=== PATIENT | female | born 1955 | race Caucasian/White ===

== ENCOUNTER 2022-08-27 09:27 | Outpatient (REF) | payer OTHER, SELFPAY ==
[2022-08-27 12:55] LABS: C Reactive Protein 2.65 mg/dL (< or = 0.50); Cortisol Random 12.9 ug/dL; Lipase 39 U/L (8-78); Magnesium 2.1 mg/dL (1.6-2.6); Phosphorus 3.4 mg/dL (2.7-4.5)
[2022-08-27 13:03] LABS: Erythrocyte Sedimentation Rate 27 MM/HR (0-20)
[2022-08-27 13:10] LABS: Ferritin 122 ng/mL (10-250); Folate 3.1 ng/mL (> or = 4.0); Vitamin B12 444 pg/mL (200-900); Vitamin D 25-OH Total 76.9 ng/mL (>30)
[2022-08-29 11:04] LABS: Calcium, Ionized 4.9 mg/dL (4.7-5.5)
[2022-08-29 12:50] LABS: Immunoglobulin G Subclass 1 704 mg/dL (382-929); Immunoglobulin G Subclass 2 197 mg/dL (241-700); Immunoglobulin G Subclass 3 30 mg/dL (22-178); Immunoglobulin G Subclass 4 19.2 mg/dL (4-86); Immunoglobulin G Total 958 mg/dL (600-1540)
[2022-08-29 13:04] LABS: IgA 145 mg/dL (70-320); IgG 1020 mg/dL (600-1540); IgM 41 mg/dL (50-300)
[2022-08-29 21:34] LABS: JO 1 Antibody <1.0 NEG AI (<1.0 NEG)
[2022-08-29 23:13] LABS: Prot Elec - Albumin 4.3 g/dL (3.8-4.8); Prot Elec - Alpha1 0.4 g/dL (0.2-0.3); Prot Elec - Beta 1 0.5 g/dL (0.4-0.6); Prot Elec - Beta 2 0.3 g/dL (0.2-0.5); Prot Elec - Gamma 0.9 g/dL (0.8-1.7); Prot Elec - Total Protein 7.5 g/dL (6.1-8.1)
[2022-08-30 11:38] LABS: PEU-Protein Creat Ratio Rand NOTE (0.024-0.184); PEU-Rand. Prot/Creat Ratio NOTE mg/g creat (24-184); PEU-Random Ur. Gamma Globulin 0 %; PEU-Random Urine A1 Globulin 0 %; PEU-Random Urine A2 Globulin 0 %; PEU-Random Urine Albumin 0 %; PEU-Random Urine Beta Globulin 0 %; PEU-Random Urine Creatinine 35 mg/dL (20-275); PEU-Random Urine Protein <4 mg/dL (5-24)
[2022-08-30 19:33] LABS: Immunoglobulin E 88 kU/L (<OR=114)
[2022-08-31 17:19] LABS: Zinc 68 mcg/dL (60-130)
[2022-08-31 17:42] LABS: Histamine Plasma <1.5 ng/mL (< OR = 1.8)
[2022-09-01 19:34] LABS: Vitamin C 0.8 mg/dL (0.3-2.7)
[2022-09-01 20:44] LABS: Calcitonin <2 pg/mL (<=5)
[2022-09-02 11:08] LABS: Vitamin B1 11 nmol/L (8-30)
[2022-09-02 14:17] LABS: Vitamin B6 9.7 ng/mL (2.1-21.7)
[2022-09-03 00:24] LABS: Gastrin 26 pg/mL (<=100)
[2022-09-03 00:58] LABS: Vitamin A 49 mcg/dL (38-98)
[2022-09-03 12:44] LABS: Gliadin Deamidated IgA Ab <1.0 U/mL; Gliadin Deamidated IgG Ab <1.0 U/mL; Transglutaminase Ab IgG <1.0 U/mL; Transglutaminase IgA <1.0 U/mL
[2022-09-03 15:14] LABS: Anti Nuclear Antibody Screen POSITIVE (NEGATIVE)
[2022-09-03 21:24] LABS: Nicotinamide <20 ng/mL; Vit B3 - Nicotinic Acid <20 ng/mL
[2022-09-04 00:44] LABS: Vitamin K1 267 pg/mL (130-1500)
[2022-09-04 04:33] LABS: C1 Esterase Inhibitor 95 % (>=68)
[2022-09-04 11:24] LABS: Vitamin B5 (Pantothenic Acid) <40 ng/mL (<275)
[2022-09-04 14:43] LABS: Angiotensin Converting Enzyme 14 U/L (9-67)
[2022-09-04 20:33] LABS: Alpha-Tocopherol 17.3 mg/L (5.7-19.9); Beta-Gamma Tocopherol <1.0 mg/L (<=4.3)
[2022-09-05 07:54] LABS: Aldolase 5.6 U/L (<=8.1)
[2022-09-06 23:39] LABS: Porphyrins, Total Plasma 0.9 mcg/L (1.0-5.6)
[2022-09-19 13:05] LABS: Metanephrine, Free <25; Normetanephrines, Free 248
[2022-09-19 13:06] LABS: Total Metanephrine, Free 248
== END 2022-08-27 09:28 | disposition home or self-care (01) ==
LOC: HO.LAB 09:27
PROVIDERS: PCP Nurse Practitioner Adult Health; Visit Provider Internal Medicine Gastroenterology
DX: D64.9 Anemia, unspecified (principal); E46 Unspecified protein-calorie malnutrition; G25.82 Stiff-man syndrome; M79.10 Myalgia, unspecified site; R19.8 Other specified symptoms and signs involving the digestive system and abdomen; R79.82 Elevated C-reactive protein (CRP); G89.29 Other chronic pain; R10.33 Periumbilical pain; E83.52 Hypercalcemia; R19.7 Diarrhea, unspecified
CPT/HCPCS: 82085; 82164; 82180; 82306; 82308; 82330; 82533; 82542; 82550; 82570; 82607; 82728; 82746; 82784; 82785; 82941; 83088; 83520; 83690; 83735; 83835; 84100; 84156; 84165; 84166; 84207; 84425; 84446; 84590; 84591; 84597; 84630; 85652; 86038; 86039; 86140; 86160; 86161; 86235; 86258; 86341; 86364

== ENCOUNTER 2022-09-19 10:44 | Outpatient (REF) | payer OTHER, SELFPAY ==
[2022-09-25 12:48] LABS: Creatinine 24Hr Urine 1034 mg/24 h (603 - 1783); N-Methylhistamine, 24Hr Urine 112 mcg/g Cr (30-200); Total Volume 1325 mL
[2022-09-26 19:54] LABS: Fecal Fat Qualitative NORMAL (NORMAL)
[2022-09-26 22:18] LABS: Coproporphyrin I, 24Hr 13.9 mcg/24 h (7.1-48.7); Coproporphyrin III, 24Hr 58.2 mcg/24 h (11.0-148.5); Heptacarboxylporphyrin, 24U 0.9 mcg/24 h (< OR = 3.3); Hexacarboxylporphryin, 24U 1.5 mcg/24 h (< OR = 10.0); Total Volume, Porphyrins 24Hr 1325 mL; Uroporphyrin I, 24 Hr 14.5 mcg/24 h (4.1-22.4)
[2022-09-28 21:58] LABS: Lactoferrin, Fecal, Quant. <6.25 mcg/mL (<7.25)
[2022-10-01 23:08] LABS: Pancreatic Elastase-1 >500 mcg/g
== END 2022-09-19 10:45 | disposition home or self-care (01) ==
LOC: HO.LNP 10:44
PROVIDERS: Visit Provider Internal Medicine Gastroenterology
DX: D64.9 Anemia, unspecified (principal); E46 Unspecified protein-calorie malnutrition; G25.82 Stiff-man syndrome; M79.10 Myalgia, unspecified site; R19.8 Other specified symptoms and signs involving the digestive system and abdomen; K51.50 Left sided colitis without complications
CPT/HCPCS: 81050; 82542; 82656; 82705; 83631; 84120

== ENCOUNTER 2022-09-26 10:33 | Day surgery (SDC) | payer OTHER, SELFPAY ==
[2022-09-24 12:26] VITALS: BMI 27.6
--- NOTE | 2022-09-25 12:19 | P.CONAN_ITS ---
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) Myalgia (Acute) Abnormal bowel habits (Acute) Anemia (Acute) Malnutrition (Acute) Past Medical History Medical History Anemia Asthma Fibromyalgia Mast cell disease Migraine Family History Family History (Updated 08/27/22 @ 09:32 by DORA Lamb) Mother HTN (hypertension) Father HTN (hypertension) Surgical History Surgical History H/O colonoscopy History of esophagogastroduodenoscopy (EGD) Hx of appendectomy Hx of section Social History Social History Patient Tobacco Use Status: Never used Tobacco Use of substances other than those prescribed or required for medical reasons: No Substance Use Type Other:: CBD with THC- last dose 6 weeks ago Are you DNR?: No Advance Directives: No Advance Directives Information Provided: Yes Patient : No Meds Allergies Allergy/AdvReac Type Severity Reaction Status Date / Time gluten Allergy Mild Unknown Verified 08/27/22 09:31 Seasonal Allergies Allergy Mild Unknown Verified 08/27/22 09:31 Home Medications Medication Instructions Recorded Confirmed Last Taken Type albuterol sulfate 90 mcg/actuation 2 puff inhalation QID PRN wheezing 08/27/22 09/24/22 Unknown History aerosol inhaler cromolyn 100 mg/5 mL oral mg PO 08/27/22 Unknown History concentrate cyclosporine 0.05 % eye drops in a 1 drp ophthalmic (eye) BID 08/27/22 09/24/22 Unknown History dropperette (Restasis) epinephrine 0.15 mg/0.3 mL 0.15 mg IM ONCE PRN anaphylaxis 08/27/22 09/24/22 Unknown History injection,auto-injector gabapentin 100 mg capsule 100 mg PO TID 08/27/22 09/24/22 Unknown History thyroid (pork) 30 mg tablet 30 mg PO BID 08/27/22 09/26/22 09/26/22 05:00 History ([place] Thyroid) 90 mg Exam Exam Date and Time: September 25, 2022 1219 Height,Weight and Vital Signs: Height 5 ft 4 in Weight 73.028 kg Assessment and Plan Assessment Anesthesia Assessment: Chart Reviewed Documented by User: Tina Edmonds MD 09/26/22 12:00 [facility] Past Medical History Medical History Anemia Asthma Fibromyalgia Mast cell disease Migraine Family History Family History (Updated 08/27/22 @ 09:32 by DORA Lamb) Mother HTN (hypertension) Father HTN (hypertension) Family history of problems with anesthesia: No Surgical History Surgical History H/O colonoscopy History of esophagogastroduodenoscopy (EGD) Hx of appendectomy Hx of section History of Problems with Anesthesia: No Social History Social History Patient Tobacco Use Status: Never used Tobacco Use of substances other than those prescribed or required for medical reasons: No Substance Use Type Other:: CBD with THC- last dose 6 weeks ago Are you DNR?: No Advance Directives: No Advance Directives Information Provided: Yes Patient : No Meds Allergies Allergy/AdvReac Type Severity Reaction Status Date / Time gluten Allergy Mild Unknown Verified 08/27/22 09:31 Seasonal Allergies Allergy Mild Unknown Verified 08/27/22 09:31 Home Medications Medication Instructions Recorded Confirmed Last Taken Type albuterol sulfate 90 mcg/actuation 2 puff inhalation QID PRN wheezing 08/27/22 09/24/22 Unknown History aerosol inhaler cromolyn 100 mg/5 mL oral mg PO 08/27/22 Unknown History concentrate cyclosporine 0.05 % eye drops in a 1 drp ophthalmic (eye) BID 08/27/22 09/24/22 Unknown History dropperette (Restasis) epinephrine 0.15 mg/0.3 mL 0.15 mg IM ONCE PRN anaphylaxis 08/27/22 09/24/22 Un known History injection,auto-injector gabapentin 100 mg capsule 100 mg PO TID 08/27/22 09/24/22 Unknown History thyroid (pork) 30 mg tablet 30 mg PO BID 08/27/22 09/26/22 09/26/22 05:00 Hist ory ([place] Thyroid) 90 mg Exam Airway Mallampati Class: II TM Dist: >3cm Neck ROM: Full Heart: rrr Lungs: cta Assessment and Plan Assessment Anesthesia Assessment: Anesthesia Plan Discussed Final Anesthetic Review Family History of Problems with Anesthesia: No History of Problems with Anesthesia: No NPO: Yes ASA Class: II Final Preanesthetic Review: No Changes in Pt Med Stat, Meds/Allgs Chart Reviewed and Consent Obtained/Reviewed Patient Risk: Intermediate Procedure Risk: Intermediate Anesthetic Plan Anesthetic Plan: MAC: Disposition: Standard PACU
[2022-09-26 11:06] VITALS: BMI 27.1
--- NOTE | 2022-09-26 11:11 | MHC.SHP ---
Pre-Procedural Eval Section A Date of Service: 09/26/22 Section B Chief Complaint: anemia,signs involving the digestive system Relevant Family History (Specify if Yes): No Relevant Social History: None Present Medications: see Short Stay Collaborative assessment Medical History: Significant History (migraines, asthma, fibromyalgia) History of Previous Operations: Relevant previous surgery/procedure and date(s) (appendectomy, c section x 2, bone marrow donation) Allergies: Allergies Allergy/AdvReac Type Severity Reaction Status Date / Time gluten Allergy Mild Unknown Verified 08/27/22 09:31 Seasonal Allergies Allergy Mild Unknown Verified 08/27/22 09:31 Review of Systems Sugical H&P ROS: Negative: Constitution, Cardiovascular, Respiratory, Neurological, Psychiatric, Hem-Onc, Allergic/Immunologic, Gastrointestinal, Genitourinary, Musculoskeletal, Integumentary, Endocrine and Eyes/Ears/Nose/Throat Exam Surgical H&P Exam: Normal: HEENT, Normal: Heart, Normal: Lungs, Normal: Extremities, Normal: Abdomen, Normal: Skin and Normal: Neurological Plan Diagnosis/Plan: Unchanged I have reviewed the history and physical and performed a pertinent physical examination on my patient. No changes have occurred unless specified. Time Spent With Patient Time: Total time managing care of this patient today ____ minutes.
[2022-09-26 11:15] VITALS: BP 156/63; PULSE 88; RESP 16; TEMP 37.2; O2SAT 97
[2022-09-26] MEDS: Lactated Ringers 1,000 ML 100 ML IVCONT (11:19)
--- NOTE | 2022-09-26 11:56 | W.PM.OPN ---
Operative Note Operative Note Date of Service: 09/26/22 Narrative: Operative Information Procedure Description: EGD, Colonoscopy Indication: anemia, abn bowel habit Anesthesia: MAC FLEXIBLE TRANSORAL UPPER GASTROINTESTINAL ENDOSCOPY AND COLONOSCOPY PROCEDURE NOTE UPPER ENDOSCOPY Consent: Indications for the procedure and potential complications of bleeding, perforation, reaction to medications and missed diagnosis were discussed with the patient and informed consent was obtained. Instrument: Olympus GIF H 190 J mid size upper endoscope Monitoring: Vital signs and clinical assessment, continuous EKG monitoring, Pulse oximetry, Carbon Dioxide monitoring and blood pressure monitoring were done throughout the procedure. Procedure: The patient was placed in the left lateral decubitis position and pre-procedure medications were administered and a bite block was placed. The endoscope was inserted into the mouth and advanced under direct vision to the third part of duodenum. A careful inspection was made as the upper endoscope was withdrawn including a retroflexed examination of the proximal stomach; Findings and interventions are described below. Findings: Larynx:normal Esophagus: GE junction at 37 cm, diaphragm hiatus at 37 cm, bogginess and erythema at GEJ, bx taken, also from distal and proximal esophagus Stomach: Granular and erythematous mucosa. Biopsies were obtained. Grade 3 flap valve on retroflexed examination of the cardia, LEs seemed v lax Duodenum: Patchy bulbar duodenitis, bx taken, also samples taken for T whipplei PCR Intervention: Biopsies as noted above COLONOSCOPY Instrument: Olympus variable stiffness pediatric scope 190L Colonoscopy Monitoring: Vital signs and clinical assessment, continuous EKG monitoring, Pulse oximetry, Carbon Dioxide monitoring and blood pressure monitoring were done throughout the procedure. Colon withdrawal time was 14 minutes. Procedure: The patient was placed in the left lateral decubitis position and pre-procedure medications were administered. After a digital rectal examination of the ano-rectum, the video colonoscope was inserted into the rectum and advanced through the colon to the cecum/TI. The colonoscope was slowly withdrawn in a retrograde panoramic fashion and the colon mucosa was carefully examined including a retroflexed view of the rectum. Findings and interventions are described below. Procedure Difficulty: easy Findings: Terminal Ileum-normal, bx taken Cecum: 6-8 mm sessile polyp removed with cold snare Ascending Colon: normal, bx taken Transverse Colon -normal, bx taken Descending Colon:normal, bx taken Sigmoid Colon: granular appearing mucosa, bx taken Rectum: Retroflexion with small internal hemorrhoids, grade I, rectal bx taken as well Anorectum - normal Colon preparation: [place] Bowel Preparation Scale Right colon; 2 Transverse colon: 3 Left colon; 3 (0 = Unprepared colon segment with mucosa not seen due to solid stool that cannot be cleared. 1 = Portion of mucosa of the colon segment seen, but other areas of the colon segment not well seen due to staining, residual stool and/or opaque liquid. 2 = Minor amount of residual staining, small fragments of stool and/or opaque liquid, but mucosa of colon segment seen well. 3 = Entire mucosa of colon segment seen well with no residual staining, small fragments of stool or opaque liquid) Impression and Post Procedure Diagnosis: Endoscopy Findings: duodenitis esophagitis lax LES gastritis Colonoscopy Findings: polyp internal hemorrhoids Plan: Await Pathology results Repeat Colonoscopy in 5-6 years or earlier if clinically indicated High fiber diet leaflet avoid straining at stool, epsom salts and sitz bath, anusol supps or cream if H pylori pos then treat Above findings were reviewed with the patient and relevant handouts were provided if indicated.
[2022-09-26 12:47] VITALS: BP 143/50; PULSE 92; RESP 16; TEMP 36.9; O2SAT 93
[2022-09-26 13:03] VITALS: BP 140/72; PULSE 79; RESP 14; O2SAT 96
[2022-09-26 13:18] VITALS: BP 148/64; PULSE 84; RESP 16; TEMP 37; O2SAT 97
[2022-10-07 08:40] LABS: Other Ref Test - Misc SEE COMMENTS
== END 2022-09-26 14:05 | disposition home or self-care (01) ==
PROVIDERS: PCP Nurse Practitioner Adult Health; Visit Provider Internal Medicine Gastroenterology
PROC: (CPT 45385; principal; 2022-09-26 12:20)
DX: D64.9 Anemia, unspecified (principal); R19.4 Change in bowel habit; D12.0 Benign neoplasm of cecum; K64.0 First degree hemorrhoids; D52.9 Folate deficiency anemia, unspecified; K29.80 Duodenitis without bleeding; K22.0 Achalasia of cardia; K29.50 Unspecified chronic gastritis without bleeding; K20.80 Other esophagitis without bleeding; K44.9 Diaphragmatic hernia without obstruction or gangrene; J45.909 Unspecified asthma, uncomplicated; M79.7 Fibromyalgia; D47.02 Systemic mastocytosis; K90.41 Non-celiac gluten sensitivity; G43.909 Migraine, unspecified, not intractable, without status migrainosus; G25.82 Stiff-man syndrome; Z79.899 Other long term (current) drug therapy
CPT/HCPCS: 45385; 45380; 43239; 87798; 88305; 88313; 88341; 88342; J2250

== ENCOUNTER 2022-12-04 14:07 | Outpatient (REF) | payer MEDICARE, OTHER, SELFPAY ==
[2022-12-04 15:41] LABS: Blood Urea Nitrogen 16 mg/dL (9-16); Estimated Glomerular Filt Rate > 60
== END 2022-12-04 14:08 | disposition home or self-care (01) ==
LOC: HO.LAB 14:07
PROVIDERS: PCP Nurse Practitioner Adult Health; Visit Provider Internal Medicine Gastroenterology
DX: D64.9 Anemia, unspecified (principal)
CPT/HCPCS: 36415; 82565; 84520

== ENCOUNTER 2022-12-05 08:18 | Outpatient (REF) | payer MEDICARE, OTHER, SELFPAY ==
--- NOTE | ~2022-12-05 | CT_ITS ---
EXAMINATION: CT ABDOMEN AND PELVIS WITHOUT CONTRAST CLINICAL INFORMATION: Periumbilical pain COMPARISON: None available. TECHNIQUE: Multidetector volumetric imaging was performed from the superior aspect of the liver through the pubic symphysis. Sagittal and coronal reformatted images were obtained on the technologist's workstation. This CT examination was performed using dose optimization techniques as appropriate, variously including the following: *Automated exposure control *Adjustment of mA and/or kV according to patient size (this includes techniques or standardized protocols for targeted exams where dose is matched to indication/reason for exam; i.e. extremities or head) *Use of iterative reconstruction technique DLP: 505 mGy-cm FINDINGS: Visualized lung bases demonstrate mild dependent atelectasis. The liver demonstrates normal size, contour and attenuation. The gallbladder is normal in appearance. The pancreas, spleen and adrenal glands are unremarkable. Small anterior splenule. Symmetrically sized kidneys. No renal calculi or hydronephrosis of either kidney. The stomach is mildly distended with fluid. Normal caliber loops of small and large bowel. Mild colonic stool burden. Surgical clips suggesting prior appendectomy. Normal caliber abdominal aorta demonstrating mild atherosclerotic disease. No retroperitoneal lymphadenopathy. The bladder is normal in appearance. Unremarkable CT appearance of the uterus. 2 cm left adnexal cyst. No gross free pelvic fluid. No inguinal lymphadenopathy. No acute osseous abnormality. CT/CT abdomen pelvis wo IV con IMPRESSION: No CT evidence for acute abnormality within the abdomen or pelvis. Fleischner guidelines were followed.
[2022-12-05] MEDS: Sorbitol/Mannit/Xanth Imaging 500 ML LIQUID 1500 ML PO (10:26)
== END 2022-12-05 08:19 | disposition home or self-care (01) ==
LOC: HO.CT 08:18
PROVIDERS: PCP Nurse Practitioner Adult Health; Visit Provider Internal Medicine Gastroenterology
DX: R10.33 Periumbilical pain (principal); R76.8 Other specified abnormal immunological findings in serum
CPT/HCPCS: 74176; 99202

== ENCOUNTER 2022-12-05 14:52 | Outpatient (AMB) | payer MEDICARE, OTHER, SELFPAY ==
[2022-12-05 14:57] VITALS: BP 112/74; PULSE 96; TEMP 36.3; O2SAT 97; BMI 28.5
--- NOTE | 2022-12-05 14:57 | A.OFFVIS_ITS ---
Intake Vital Signs 12/05/22 14:57 Height 5 ft 4 in Weight 166 lb 0.129 oz BMI 28.5 BP 112/74 Blood Pressure Location Rt brachial Position Sitting Pulse 96 Pulse Source Pulse Oximeter Temp 97.3 F Temp Source Skin Pulse Oximetry (%) 97 Intake Visit Reasons: Myalgia ? autoimmune Intake Note: New pt presents today for consult referred by GI Dr De La Rosa. C/o generalized pain Seen previous RHEUM [facility] Dr Char Barrios Was using medical marijuna in the past for FM management, has not used in 6mos Slot Shift Manager Required: No Accompanied by: Self / Same As Patient Allergies gluten Allergy (Mild, Verified 12/05/22 15:01) Unknown Seasonal Allergies Allergy (Mild, Verified 12/05/22 15:01) Unknown Medication List - Last Reconciled 12/05/22 by Deshawn Shah MD albuterol sulfate 90 mcg/actuation 2 puffs inhalation QID PRN celecoxib (Celebrex) 100 mg PO BID cromolyn mg PO cyclosporine 0.05% (Restasis) 1 drp ophthalmic (eye) BID epinephrine 0.15 mg IM ONCE PRN gabapentin 100 mg PO TID peg-electrolyte soln 420 gram 240 mL PO Q10M thyroid (pork) ([place] Thyroid) 60 mg PO DAILY HPI HPI Comments History of Present Illness Details This is a 67-year-old female with a past medical history of fibromyalgia who presents for evaluation of multiple issues. Patient has numerous complaints. She was diagnosed with fibromyalgia in her 30s. She has diffuse body pain, she gets muscle cramps especially her toes, her ankles. These cramps happen when in a certain position and she has to tried to get herself into a comfortable position as soon as she can. Took Lyrica in the past which was not helpful. She also gets a sensation of chest pain traveling from her abdomen into her chest at night. She also gets random tingling and numbness of her elbows. Back in 2020 patient was evaluated by a manager skilled at [facility] and was told that no signs of autoimmune rheumatic disease was found, she was also evaluated by a neurologist at [facility], had EMG and testing was negative. 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 She has been taking magnesium for 10 years. [facility] Medical History (Updated 12/05/22 @ 15:48 by Deshawn Shah MD) Anemia Asthma Fibromyalgia Mast cell disease Migraine Stiff-man syndrome Surgical History H/O colonoscopy History of esophagogastroduodenoscopy (EGD) Hx of appendectomy Hx of section Family History Mother HTN (hypertension) Father HTN (hypertension) Social History Household Members: Spouse Alcohol intake: current Alcohol intake frequency: holidays/special occasions only Alcohol type: wine Patient Tobacco Use Status: Never used Tobacco Current occupational status: retired Female Reproductive History Menstrual Total pregnancies: 3 Number of Living Children: 3 Review of Systems Const Reports fatigue Eyes Reports diplopia and Reports dry eyes ENT Reports hoarseness and Reports tinnitus Card Reports no additional complaints and Reports dyspnea Resp Reports cough, Reports dyspnea and Reports wheezing GI Reports diarrhea Musc Reports arthralgias and Reports tingling Neuro Reports restless legs, Reports tingling and Reports paresthesias Psych Reports abnormal sleep pattern and Reports anxiety Endo Reports fatigue Aller/Immun Reports wheezing Physical Exam Vital Signs: Last Vital Signs Temp 97.3 F 12/05/22 14:57 Pulse 96 12/05/22 14:57 BP 112/74 12/05/22 14:57 Pulse Ox 97 12/05/22 14:57 BMI result Body Mass Index 28.5 Const General: cooperative, healthy appearing and comfortable Nutritional Appearance: overweight Orientation/consciousness: patient oriented x3 Limitations: no limitations HEENT Head: Yes normocephalic and Yes atraumatic Mouth: moist mucous membranes Resp Effort & Inspection: normal respiratory effort and able to speak in complete sentences Auscultation: clear to auscultation bilaterally Cardio Rate: regular rate Rhythm: regular rhythm GI Inspection: No distended Palpation (GI): Soft to palpation and nontender Skin General skin exam: no rashes or lesions noted Neuro General: patient oriented x3 Extrem Other: Mild osteoarthritic changes of both hands with no active synovitis Normal nailfold capillaroscopy Proximal muscle strength 5/5 in all extremities Assessment & Plan Assessment & Plan (1) FLORINDA positive: Code(s): R76.8 - Other specified abnormal immunological findings in serum Plan: This is a 67-year-old female who presents for evaluation of a positive FLORINDA. Since her 30s patient has had numerous symptoms including muscle cramps, fatigue, joint pain, chest pain, headaches, irritable bowel habits. Skin rashes. Recent labs showed positive FLORINDA 1-80 DFS pattern. Workup in 2020 showed negative MAC and normal EMG of upper extremities. I do not see any signs of autoimmune rheumatic disease. Patient has been evaluated by rheumatologists and neurologists multiple times. Most recently she was evaluated by Rheumatology and Neurology at [facility]. The majority of patient's symptoms can be explained by fibromyalgia. Patient follows up regularly with a therapist. I suggested evaluation by a psychiatrist. Continue to follow-up with GI. Follow-up as needed Coding Level of Care Code New Pt Level 3 (59413) Diagnoses FLORINDA positive R76.8
== END 2022-12-05 15:42 | disposition home or self-care (01) ==
PROVIDERS: PCP Nurse Practitioner Adult Health; Visit Provider Student in an Organized Health Care Education/Training Program
DX: R76.8 Other specified abnormal immunological findings in serum (principal)
CPT/HCPCS: 99203

== ENCOUNTER 2023-01-07 09:51 | Outpatient (AMB) | payer MEDICARE, OTHER, SELFPAY ==
--- NOTE | 2023-01-07 09:54 | A.OFFVIS_ITS ---
Intake Vital Signs 01/07/23 09:56 Height 5 ft 4 in Weight 167 lb 8.821 oz BMI 28.8 BP 175/83 H Blood Pressure Location Lt brachial Position Sitting Pulse 87 Intake Visit Reasons: 4 mnth follow up Intake Note: Khadra presents in the office as a 4 month follow up. CC: Nothing seems to have changed - she still has all the pains in her stomach, bloating, gas pains, discomfort and nausea every morning. Allergies gluten Allergy (Mild, Verified 01/07/23 09:56) Unknown Seasonal Allergies Allergy (Mild, Verified 01/07/23 09:56) Unknown HPI 4 mnth follow up HPI Details 67 yr old f w/ hx of appendectomy, c-sec tion, migraines, asthma, here for f/u RECAP: All her life she has felt she has had issues migraines since teenage years diagnosed with SIBO and EBV she gets urticarial rash with exercise she cant drink alcohol makes her go in a rash and throat constricts she denies nausea, no vomiting she did have 2 months of lower abdominal pain going into the back but it went away by itself she can have bowel urgency, remains gluten free, usu loose bowels she had colonoscopy aged 52 with no bx, EGD also done, no bx done no blood in stool stool can flush, sometimes looks greasy she has noted satiety she has no heartburn she has bloating with a lot of gas she has been dx with fibromyalgia she has body pain, sometimes feels hard to walk she has extreme muscle cramping she saw a neurologist and had EMG and normal never had muscle biopsy never been checked for stiff man syndrome she is on a lot of meds incl cromolyn and pepcid, quercetin and supplements feels not helping she has treatment for sibo EGD/[place]; duodenitis, adnoema neg for amyloid and IgG4 INTERIM: she felt the celebrex has been good for day time sx, but not really helping her evening symptoms she traore shave nausea at night and morning when she lies down she has a strange sensation tingling, sensation of swelling, yucky feeling in chest, goes into the hands, and burning stays there toes can cramp a lot folate was low, not replenished she has used CCB, b vit complexes, biofeed, acupuncture, ugandan herbs EXAM: GENERAL: The patient is well developed and nontoxic. VITAL SIGNS:see workflow HEENT: Nonicteric sclerae, PERRLA, EOMI. Oropharynx clear. Moist mucous membranes. Conjunctivae appear well perfused. No thyroid mass. CHEST: Chest wall is nontender. HEART: Regular rate and rhythm without murmurs. LUNGS: Clear to auscultation bilaterally. ABDOMEN: Soft, positive bowel sounds, nontender, no organomegaly.no flank tenderness SKIN: No rash, no excessive bruising, petechiae, or purpura. NEUROLOGIC: Cranial nerves II-XII intact without motor/sensory deficit. psych: normal affect tender shoulder,s and neck A/P: 1/ Numerous assortment of sx incl musc c ramps, abn bowle habits, satiety, whole body pain, hard ot pinpoint a single dx at this time, ddx: referred from spine, due to folate def, taurine def Plan: 1/ taurine 1 g TID 2/ Folate replacement 5 mg daily 3/ cont with celebrex, occ monitoring of labs 4/ c spine, maybe mri depending on this [facility] Medical History (Updated 01/07/23 @ 10:28 by Manjinder De La Rosa MD) Fibromyalgia Asthma Migraine Mast cell disease Anemia Stiff-man syndrome Surgical History Hx of section Hx of appendectomy History of esophagogastroduodenoscopy (EGD) H/O colonoscopy Family History Mother HTN (hypertension) Father HTN (hypertension) Social History Household Members: Spouse Alcohol intake: current Alcohol intake frequency: holidays/special occasions only Alcohol type: wine Patient Tobacco Use Status: Never used Tobacco Current occupational status: retired Physical Exam Vital Signs: Last Vital Signs Pulse 87 01/07/23 09:56 BP 175/83 H 01/07/23 09:56 BMI result Body Mass Index 28.8 Assessment & Plan Assessment & Plan (1) Cervical spine arthritis: Code(s): M47.812 - Spondylosis without myelopathy or radiculopathy, cervical region (2) FLORINDA positive: Code(s): R76.8 - Other specified abnormal immunological findings in serum (3) Myalgia: Code(s): M79.10 - Myalgia, unspecified site Orders: Orders XR cervical spine 2V Today M47.812 - Spondylosis without myelopathy or radiculopathy, cervical region, M79.10 - Myalgia, unspecified site, R76.8 - Other specified abnormal immunological findings in serum Coding Level of Care Code Est Pt Level 4 (52127) Diagnoses Cervical spine arthritis M47.812 FLORINDA positive R76.8 Myalgia M79.10
[2023-01-07 09:56] VITALS: BP 175/83; PULSE 87; BMI 28.8
== END 2023-01-07 11:03 | disposition home or self-care (01) ==
PROVIDERS: PCP Nurse Practitioner Adult Health; Visit Provider Internal Medicine Gastroenterology
DX: M47.812 Spondylosis without myelopathy or radiculopathy, cervical region (principal); R76.8 Other specified abnormal immunological findings in serum; M79.10 Myalgia, unspecified site
CPT/HCPCS: 99214

== ENCOUNTER 2023-01-07 09:51 | Outpatient (REF) | payer MEDICARE, OTHER, SELFPAY ==
--- NOTE | ~2023-01-07 | XR_ITS ---
EXAMINATION: XR CERVICAL SPINE CLINICAL INFORMATION: Spondylosis without myelopathy, tingling in arms, neck stiffness, check for arthritis COMPARISON: None available. TECHNIQUE: 3 views of the cervical spine were obtained. FINDINGS: Slight reversal of the normal cervical lordosis. Moderate multilevel cervical spondylosis with loss of disc space height and hypertrophic change at C6-C7. Minimal anterolisthesis of C4 on C5. XR/XR cervical spine 2V IMPRESSION: Moderate multilevel cervical spondylosis most notable at C6-C7.
== END 2023-01-07 09:52 | disposition home or self-care (01) ==
LOC: HO.XRAY 09:51
PROVIDERS: PCP Nurse Practitioner Adult Health; Visit Provider Internal Medicine Gastroenterology
DX: M47.812 Spondylosis without myelopathy or radiculopathy, cervical region (principal); M79.10 Myalgia, unspecified site; R76.8 Other specified abnormal immunological findings in serum
CPT/HCPCS: 72040; 99212

== ENCOUNTER 2023-03-01 12:39 | Outpatient (REF) | payer MEDICARE, OTHER, SELFPAY ==
--- NOTE | ~2023-03-01 | MR_ITS ---
EXAMINATION: MR CERVICAL SPINE WITHOUT CONTRAST CLINICAL INFORMATION: Spondylosis, neck pain and stiffness, hand/limb burning sensation. COMPARISON: Cervical radiographs 01/07/2023 TECHNIQUE: MRI of the cervical spine was obtained using routine sequences without contrast. FINDINGS: Mild reversal of normal cervical lordosis. Grade 1 anterolisthesis of C3-C4, C4-C5, T2-T3 and T3-T4. Trace retrolisthesis of C5-C6. Cervical vertebral body heights are maintained. No expansile or destructive osseous lesion. The cervical spinal cord is normal in signal. C2-C3: Asymmetric left-sided facet arthropathy. The spinal canal and neural foramen remain patent. C3-C4: No significant spinal canal stenosis. Uncovertebral and facet arthropathy with moderate right and mild left neural foraminal stenosis. C4-C5: No significant spinal canal stenosis. Uncovertebral and facet arthropathy with mild bilateral neural foraminal stenosis. C5-C6: Disc osteophyte complex indents the ventral thecal sac without significant associated spinal canal stenosis. There is mild to moderate bilateral neural foraminal stenosis secondary to uncovertebral and facet arthropathy. C6-C7: No significant spinal canal stenosis. Mild narrowing of the right neural foramen. C7-T1: No significant spinal canal or neural foraminal stenosis. Facet degeneration. MR/MR cervical spine wo con IMPRESSION: Multilevel degenerative changes of the cervical spine as described above. No high-grade spinal canal stenosis. Moderate right neural foraminal stenosis at C3-C4.
== END 2023-03-01 12:40 | disposition home or self-care (01) ==
LOC: HO.MRI 12:39
PROVIDERS: PCP Nurse Practitioner Adult Health; Visit Provider Internal Medicine Gastroenterology
DX: M47.812 Spondylosis without myelopathy or radiculopathy, cervical region (principal)
CPT/HCPCS: 72141

== ENCOUNTER 2023-04-04 13:06 | Outpatient (REF) | payer MEDICARE, OTHER, SELFPAY ==
[2023-04-04 13:23] LABS: MANUAL DIFF FLAG NO
[2023-04-04 14:08] LABS: Basophils Absolute Auto 0.1 X10*3/uL (0.0-0.2); Eosinophils Absolute Auto 0.1 X10*3/uL (0.0-0.4); Eosinophils Percent Auto 1.2 % (0-4); Hematocrit 42.6 % (37.0-47.0); Hemoglobin 14.2 g/dl (12.0-16.0); Imm Gran Abs Auto 0.02 X10*3/uL (0.00-0.03); Imm Gran Pct Auto 0.3 % (0.0-0.4); Lymphocytes Absolute Auto 2.1 X10*3/uL (1.2-4.9); Lymphocytes Percent Auto 34.7 % (20-40); Mean Corpuscular HGB Conc 33.3 g/dl (31.0-35.0); Mean Corpuscular Hemoglobin 28.6 pg (27.0-33.0); Mean Corpuscular Volume 85.7 fL (80.0-98.0); Mean Platelet Volume 9.7 fL (9.4-12.3); Monocytes Absolute Auto 0.4 X10*3/uL (0.1-1.2); Monocytes Percent Auto 6.5 % (2-11); Neutrophils Absolute Auto 3.4 x10*3/uL (2.0-8.3); Neutrophils Percent Auto 56.3 % (45-73); Platelet Count 280 X10*3/uL (160-400); Red Blood Count 4.97 X10*6/uL (4.20-5.50); Red Cell Distribution Width 13.2 % (11.0-16.0)
[2023-04-04 14:37] LABS: Alanine Aminotransferase 22 U/L (0-31); Albumin Level 4.4 g/dL (3.5-5.0); Alkaline Phosphatase 70 U/L (39-117); Anion Gap 11 (12-20); Aspartate Amino Transferase 22 U/L (5-31); Bilirubin Total 0.3 mg/dL (0.0-1.0); Blood Urea Nitrogen 21 mg/dL (9-16); Calcium 9.6 mg/dL (8.4-10.2); Carbon Dioxide 27 mmol/L (22-29); Chloride 106 mmol/L (96-108); Estimated Glomerular Filt Rate > 60; Glucose Random 88 mg/dL (60-115); Sodium 140 mmol/L (135-145); Total Protein 7.5 g/dL (6.5-8.0)
[2023-04-04 15:10] LABS: Folate > 20.0 ng/mL (> or = 4.0); Vitamin B12 1225 pg/mL (200-900)
== END 2023-04-04 13:07 | disposition home or self-care (01) ==
LOC: HO.LAB 13:06
PROVIDERS: PCP Nurse Practitioner Adult Health; Visit Provider Internal Medicine Gastroenterology
DX: M79.10 Myalgia, unspecified site (principal); K75.81 Nonalcoholic steatohepatitis (NASH); D64.9 Anemia, unspecified
CPT/HCPCS: 36415; 80053; 82607; 82746; 85025

== ENCOUNTER 2023-04-08 14:31 | Outpatient (AMB) | payer MEDICARE, OTHER, SELFPAY ==
--- NOTE | 2023-04-08 14:31 | A.OFFVIS_ITS ---
Intake Intake Visit Reasons: 3 months follow up Intake Note: Khadra presents as a video. CC: She states that she is not feeling any better and still having pains all over her body. It gets worse at night so she is unable to sleep because of it. Allergies gluten Allergy (Mild, Verified 04/08/23 14:31) Unknown Seasonal Allergies Allergy (Mild, Verified 04/08/23 14:31) Unknown HPI 3 months follow up HPI Details 67 yr old f w/ hx of appendectomy, c-sec tion, migraines, asthma, called for f/u RECAP: All her life she has felt she has had issues migraines since teenage years diagnosed with SIBO and EBV she gets urticarial rash with exercise she cant drink alcohol makes her go in a rash and throat constricts she denies nausea, no vomiting she did have 2 months of lower abdominal pain going into the back but it went away by itself she can have bowel urgency, remains gluten free, usu loose bowels she had colonoscopy aged 52 with no bx, EGD also done, no bx done no blood in stool stool can flush, sometimes looks greasy she has noted satiety she has no heartburn she has bloating with a lot of gas she has been dx with fibromyalgia she has body pain, sometimes feels hard to walk she has extreme muscle cramping she saw a neurologist and had EMG and normal never had muscle biopsy never been checked for stiff man syndrome she is on a lot of meds incl cromolyn and pepcid, quercetin and supplements feels not helping she has treatment for sibo dx with lyme disease a month ago EGD/[place]; duodenitis, adenoma neg for amyloid and IgG4 MRI spine: Multilevel degenerative changes of the cervical spine No high-grade spinal canal stenosis. Moderate right neural foraminal stenosis at C3-C4. INTERIM: she hasn;t felt great poor sleep she has pain in neck, hips, all way down the legs she has been doing PT been on doxycycline--plan to be on 3 months-for lyme disease she has poor sleep, wakes up with discomfort, has cramps in legs she tried taurine and it did not help FH of intolerance to anesthesia EXAM: GENERAL: The patient is well developed and nontoxic. A/P: 1/ Numerous assortment of sx incl musc c ramps, abn bowle habits, satiety, whole body pain, hard ot pinpoint a single dx at this time, ddx: referred from spine, due to folate def, taurine def--being treated for lyme testing Plan: 1/ RASt testing 2/ refer sleep study 3/ still consider muscle biopsy ?lactate testing during cramps PFSH Medical History (Updated 04/08/23 @ 15:32 by Manjinder De La Rosa MD) Fibromyalgia Asthma Migraine Mast cell disease Anemia Stiff-man syndrome Surgical History Hx of section Hx of appendectomy History of esophagogastroduodenoscopy (EGD) H/O colonoscopy Family History Mother HTN (hypertension) Father HTN (hypertension) Social History Household Members: Spouse Alcohol intake: current Alcohol intake frequency: holidays/special occasions only Alcohol type: wine Patient Tobacco Use Status: Never used Tobacco Current occupational status: retired Assessment & Plan Assessment & Plan (1) Cervical spine arthritis: Code(s): M47.812 - Spondylosis without myelopathy or radiculopathy, cervical region Plan: A/P: 1/ Numerous assortment of sx incl musc cramps, abn bowle habits, satiety, whole body pain, hard ot pinpoint a single dx at this time, ddx: referred from spine, due to folate def, taurine def--being treated for lyme testing Plan: 1/ RASt testing 2/ refer sleep study 3/ still consider muscle biopsy ?lactate testing during cramps (2) Myalgia: Code(s): M79.10 - Myalgia, unspecified site Plan: A/P: 1/ Numerous assortment of sx incl musc cramps, abn bowle habits, satiety, whole body pain, hard ot pinpoint a single dx at this time, ddx: referred from spine, due to folate def, taurine def--being treated for lyme testing Plan: 1/ RASt testing 2/ refer sleep study 3/ still consider muscle biopsy ?lactate testing during cramps (3) Poor sleep: Code(s): Z72.820 - Sleep deprivation Plan A/P: 1/ Numerous assortment of sx incl musc cramps, abn bowle habits, satiety, whole body pain, hard ot pinpoint a single dx at this time, ddx: referred from spine, due to folate def, taurine def--being treated for lyme testing Plan: 1/ RASt testing 2/ refer sleep study 3/ still consider muscle biopsy ?lactate testing during cramps Orders: Orders Immunoglobulin E Today M47.812 - Spondylosis without myelopathy or radiculopathy, cervical region, M79.10 - Myalgia, unspecified site Rast Allergen Today M47.812 - Spondylosis without myelopathy or radiculopathy, cervical region, M79.10 - Myalgia, unspecified site Referrals Sleep Medicine Referral M47.812 - Spondylosis without myelopathy or radiculopathy, cervical region, M79.10 - Myalgia, unspecified site, Z72.820 - Sleep deprivation Telehealth Telehealth Location of provider rendering services: practice address Location of patient: address on file Patient Identification confirmed using: Name, : Yes Telehealth method: video Patient verbally consented to treatment: Yes Patient verbally consented to billing insurance company: Yes Patient informed of any privacy concerns related to visit: Yes Minutes spent on Phone/Video with Pt.: 26 Coding Level of Care Code Tele Est Pt Level 4 (57353) Diagnoses Cervical spine arthritis M47.812 Myalgia M79.10 Poor sleep Z72.820
== END 2023-04-08 16:19 | disposition home or self-care (01) ==
LOC: HO.HGI 14:31
PROVIDERS: PCP Nurse Practitioner Adult Health; Visit Provider Internal Medicine Gastroenterology
DX: R19.4 Change in bowel habit (principal); R68.81 Early satiety; M47.812 Spondylosis without myelopathy or radiculopathy, cervical region; M79.10 Myalgia, unspecified site
CPT/HCPCS: 99213

== ENCOUNTER → 2023-04-08 14:31 | Outpatient (BNVA) | payer MEDICARE, OTHER, SELFPAY | PROVIDERS: PCP Nurse Practitioner Adult Health; Visit Provider Internal Medicine Gastroenterology ==

== ENCOUNTER 2023-05-22 09:51 | Outpatient (AMB) | payer MEDICARE, OTHER, SELFPAY ==
[2023-05-22 09:53] VITALS: BP 179/63; PULSE 86
--- NOTE | 2023-05-22 09:53 | MHC.OFFVIS ---
Intake Vital Signs 05/22/23 09:53 Height 5 ft 4 in Weight 175 lb BMI 30.0 BP 179/63 H Blood Pressure Location Lt brachial Position Sitting Pulse 86 Intake Visit Reasons: Myalgia, deep muscle biopsy Intake Note: This patient was referred by for an assessment for myalgia, deep muscle biopsy. Pt c/o; Onset 30 years, reports myalgia. Fitting Room Operator Required: No Accompanied by: Self / Same As Patient Allergies gluten Allergy (Mild, Verified 05/22/23 10:00) Unknown Seasonal Allergies Allergy (Mild, Verified 05/22/23 10:00) Unknown Medication List - Last Reconciled 05/22/23 by Ayo Neri MD albuterol sulfate 90 mcg/actuation 2 puffs inhalation QID PRN celecoxib (Celebrex) 100 mg PO BID cyclosporine 0.05% (Restasis) 1 drp ophthalmic (eye) BID doxycycline hyclate 100 mg PO BID epinephrine 0.15 mg IM ONCE PRN rifaximin 550 mg PO TID 2 weeks thyroid (pork) ([place] Thyroid) mg PO HPI Myalgia, deep muscle biopsy HPI Details 67 year old female referred for question of a need for muscle biopsy by the discount clerk. She apparently has a long history of muscle cramping, diffuse muscle aches and pains for several years now. She says she has been seeing so many billet straightener and neurologist already in the past. She was told that she likely has fibromyalgia She continues to have this frequent cramping and pain of and states that she is now frustrated about persistence of her symptoms. She says that this has been affecting her lifestyle. She also says that she often is unable to sleep well through the night. She denies any motor or sensory deficits. [facility] Medical History Fibromyalgia Asthma Migraine Mast cell disease Anemia Stiff-man syndrome Surgical History Hx of section Hx of appendectomy History of esophagogastroduodenoscopy (EGD) H/O colonoscopy Family History Mother HTN (hypertension) Father HTN (hypertension) Social History Household Members: Spouse Alcohol intake: current Alcohol intake frequency: holidays/special occasions only Alcohol type: wine Patient Tobacco Use Status: Never used Tobacco Current occupational status: retired Review of Systems Const Denies chills and Denies fever(s) Card Denies chest pain, Denies dyspnea and Denies dyspnea on exertion Resp Denies cough, Denies dyspnea and Denies dyspnea on exertion GI Denies hematochezia and Denies change in bowel habits Denies hematuria Musc Denies back pain, Reports myalgias, Reports arthralgias, Reports limited range of motion and Reports muscle cramps Neuro Denies focal weakness and Denies convulsions Psych Denies depression and Denies mood swings Physical Exam Vital Signs: Last Vital Signs Pulse 86 05/22/23 09:53 BP 179/63 H 05/22/23 09:53 BMI result Body Mass Index 30.0 Const General: comfortable and no acute distress Orientation/consciousness: patient oriented x3 Neck Neck: Yes no lymphadenopathy Resp Auscultation: clear to auscultation bilaterally Cardio Rhythm: regular rhythm GI Palpation (GI): Soft to palpation, nontender and no guarding Neuro Other: No motor or sensory deficits General: patient oriented x3 Assessment & Plan Assessment & Plan (1) Myalgia: Code(s): M79.10 - Myalgia, unspecified site Plan: She has chronic muscle pain on various muscle groups. She has been seen by a neurologist and billet straightener for so many years. She says she had been told she had fibromyalgia but wants to make sure she has no other diagnosis that is being missed. She wants to be referred to [facility] I will help her with this. I do not feel that she needs a muscle biopsy at this point without being seen by a neurologist or billet straightener. She understands the plan. Coding Level of Care Code New Pt Level 3 (31021) Diagnoses Myalgia M79.10
== END 2023-05-22 10:30 | disposition home or self-care (01) ==
PROVIDERS: PCP Nurse Practitioner Adult Health; Visit Provider Surgery
DX: M79.10 Myalgia, unspecified site (principal)
CPT/HCPCS: 99203

== ENCOUNTER → 2023-05-22 09:51 | Outpatient (BNVA) | payer MEDICARE, OTHER, SELFPAY | PROVIDERS: PCP Nurse Practitioner Adult Health; Visit Provider Surgery | DX: M79.10 Myalgia, unspecified site (principal) | CPT/HCPCS: 99202 ==

== ENCOUNTER 2023-06-05 10:35 | Outpatient (AMB) | payer MEDICARE, OTHER, SELFPAY ==
[2023-06-05 10:38] VITALS: BP 132/68; BMI 27.3
--- NOTE | 2023-06-05 10:38 | MHC.OFFVIS ---
Intake Vital Signs 06/05/23 10:38 Height 5 ft 7 in Weight 174 lb 2.643 oz BMI 27.3 BP 132/68 Blood Pressure Location Lt brachial Position Sitting Intake Visit Reasons: discuss muscle biopsy (ref from Rj) Intake Note: Patient referred by Dr. De La Rosa to discuss muscle biopsy. Awaiting on [facility] consult. Patient c/o: muscle cramps, pain. Computer Numerical Control Grinder Required: No Accompanied by: Self / Same As Patient Allergies gluten Allergy (Mild, Verified 06/05/23 10:41) Unknown Seasonal Allergies Allergy (Mild, Verified 06/05/23 10:41) Unknown HPI HPI Comments History of Present Illness Details Patient is being seen per referral by Dr. De La Rosa for muscle biopsy. This is to cooperate/confirmed a diagnosis of fibromyalgia. Patient was seen by another surgeon year old wished to hold off on the biopsy until she was seen by Neurology or rheumatology by Dr. De La Rosa would like this done. Chart was reviewed and patient evaluated. Patient has many year history of upper and lower extremity muscle weakness. Patient is a variety of constitutional symptoms as well. Chart was reviewed and patient evaluated [facility] Medical History Fibromyalgia Asthma Migraine Mast cell disease Anemia Stiff-man syndrome Surgical History Hx of section Hx of appendectomy History of esophagogastroduodenoscopy (EGD) H/O colonoscopy Family History Mother HTN (hypertension) Father HTN (hypertension) Social History Household Members: Spouse Alcohol intake: current Alcohol intake frequency: holidays/special occasions only Alcohol type: wine Patient Tobacco Use Status: Never used Tobacco Current occupational status: retired Physical Exam Vital Signs: Last Vital Signs BP 132/68 06/05/23 10:38 BMI result Body Mass Index 27.3 Chest Other: Chest breath sounds bilaterally GI Other: Abdomen soft, benign Extrem Other: All 4 extremities grossly neurovascularly intact. Assessment & Plan Assessment & Plan (1) Myalgia: Code(s): M79.10 - Myalgia, unspecified site Plan Risks, benefits, alternatives of right anterior thigh muscle biopsy were reviewed with the patient and included but not limited to bleeding, infection, non diagnosis, numbness, pain, scarring and the patient wished to proceed. All questions answered. Arrangements were made for this. Coding Level of Care Code New Pt Level 5 (50609) Diagnoses Myalgia M79.10
== END 2023-06-05 10:55 | disposition home or self-care (01) ==
PROVIDERS: PCP Nurse Practitioner Adult Health; Visit Provider Surgery
DX: M79.10 Myalgia, unspecified site (principal)
CPT/HCPCS: 99204

== ENCOUNTER → 2023-06-05 10:35 | Outpatient (BNVA) | payer MEDICARE, OTHER, SELFPAY | PROVIDERS: PCP Nurse Practitioner Adult Health; Visit Provider Surgery | DX: M79.10 Myalgia, unspecified site (principal) | CPT/HCPCS: 99202 ==

== ENCOUNTER 2023-07-02 10:55 | Outpatient (REF) | payer MEDICARE, OTHER, SELFPAY ==
[2023-07-03 14:28] LABS: Immunoglobulin E 61 kU/L (<OR=114)
== END 2023-07-02 10:56 | disposition home or self-care (01) ==
LOC: HO.LAB 10:55
PROVIDERS: PCP Nurse Practitioner Adult Health; Visit Provider Internal Medicine Gastroenterology
DX: M47.812 Spondylosis without myelopathy or radiculopathy, cervical region (principal); M79.10 Myalgia, unspecified site; Z91.018 Allergy to other foods
CPT/HCPCS: 36415; 82785; 86003

== ENCOUNTER 2023-07-15 13:14 | Outpatient (AMB) | payer MEDICARE, OTHER, SELFPAY ==
--- NOTE | 2023-07-15 13:18 | MHC.OFFVIS ---
Intake Vital Signs 07/15/23 13:19 Height 5 ft 7 in Weight 175 lb BMI 27.4 BP 132/62 Blood Pressure Location Lt brachial Position Sitting Respiration 16 Pulse 96 Pulse Source Pulse Oximeter Pulse Oximetry (%) 98 Oxygen Delivery Method Room Air Intake Visit Reasons: INP-Spondylosis w/oMyelopathy/cervical - Confirmed Intake Note: Pt presents for new pt evaluation for spondylosis without myelopathy. Insurance Instructor Required: No Allergies gluten Allergy (Mild, Verified 07/15/23 13:19) Unknown Seasonal Allergies Allergy (Mild, Verified 07/15/23 13:19) Unknown Medication List - Last Reconciled 07/15/23 by Berkley Russell, DIRECTOR OF CASEWORK SERVICES albuterol sulfate 90 mcg/actuation 2 puffs inhalation QID PRN celecoxib (Celebrex) 100 mg PO BID cyclosporine 0.05% (Restasis) 1 drp ophthalmic (eye) BID epinephrine 0.15 mg IM ONCE PRN thyroid (pork) ([place] Thyroid) mg PO HPI HPI Comments History of Present Illness Details 67-yr-old female presents for evaluation of sleep disorder. Pt relays her medical hx: She reports migraine w/ aura since age 12, migraine aura w/o headache since menopause. Fibromyalgia x's past 30 yrs ago. Muscle cramping x's past 40 yrs. Cramping is at rest and w/ action. Can be neck through, abd, arms, legs, feet. Yawning can trigger neck cramp. No cramping/spasms in the face. Her feet can cramp and posture/twist x's 5-10 minutes. Once the cramp breaks, the cramp can easily re-cramp. She has tried mustard, pickle juice, supplements, acupuncture. soap in her sock, CD-LD, Gabapentin, Flexeril. Then, approx 1 yr ago, woke up with every joint in her body being stiff. She was dx'd w/ Lyme dz in Feb 2023- and completed 3 month course of ABT. She feels since her fatigue and joint mobility/pain is much better. Over the years, she has seen many specialist. Most recently [facility] neurology. She has had movement d/o eval. She has been referred to [facility]. She has been seeing Dr De La Rosa, [facility], who had suggested she have a muscle bx, however [facility] Neuro thought risk did not outweigh benefit. Per pt she has had extensive work-up, including EMG/NCSs, anti-RAFA 65- negative. 02/2023, MR/MR cervical spine wo con: Multilevel degenerative changes of the cervical spine. Moderate right neural foraminal stenosis at C3-C4. Through Functional Medicine- recent Pyruvate level was low. In terms of her sleep, she has difficulty initiating and maintaining from sleep: When she is sleeping, she has a strange electrical energy sensation that wakes her up from sleep every night x's the past 7 yrs. She feels an energy that moves up through midchest (sometimes mid-abdomen) either through her head or hands f/b BUE L > R tingling and then achenes, and sometimes into her legs as an aching discomfort. Often occurs when laying supine after a few hours, more recently occurs between 4:30am. Cramping can also make it difficult to fall asleep. Pain in her joints- neck, shoulders, back, hips, knees. Also endorses some snoring, un-refreshing sleep, daytime tiredness/fatigue- needs to take a nap, Denies parasomnias. She also endorses left hand is often cold, vertigo, bilateral tinnitus, occasional difficulty swallowing- maybe on a larger pill or food/fluid goes down the wrong day), h/o syncope while flying or near-syncope when hiking. She denies restlessness, sudden episodes of weakness, neck injuries. Her father, dtr, and one of her twin sons- have cramping. She also notes family h/o inability to metabolize alcohol- causes facial redness, palpitations. Histamine/allergic reaction to exercise. Son had dissected carotid and vertebral, kidney infarction, aortic aneurysm. Her has an aortic aneurysm. Inability to metabolize alcohol- causes facial redness, palpitations. Histamine/allergic reaction to exercise. Denies family h/o known movement d/o. [facility] Medical History Fibromyalgia Asthma Migraine Mast cell disease Anemia Stiff-man syndrome Surgical History Hx of section Hx of appendectomy History of esophagogastroduodenoscopy (EGD) H/O colonoscopy Family History Mother HTN (hypertension) Father HTN (hypertension) Social History Household Members: Spouse Alcohol intake: current Alcohol intake frequency: holidays/special occasions only Alcohol type: wine Patient Tobacco Use Status: Never used Tobacco Current occupational status: retired Review of Systems Const All systems reviewed & are unremarkable except as noted in HPI and below Physical Exam Vital Signs: Last Vital Signs Pulse 96 07/15/23 13:19 Resp 16 07/15/23 13:19 BP 132/62 07/15/23 13:19 Pulse Ox 98 07/15/23 13:19 Oxygen Delivery Method Room Air 07/15/23 13:19 BMI result Body Mass Index 27.4 Const General: cooperative and no acute distress Orientation/consciousness: patient oriented x3 HEENT Head: Yes normocephalic Resp Effort & Inspection: normal respiratory effort and able to speak in complete sentences Neuro Other: Expression intact. Mild tongue movement. Mallampati grade 4 FFM, BUE JERAD, Foot taps- intact. BUE- no appreciable tone. Mild need to reposition in chair. Initially stand easily w/ good stride/steady gait and good turn. At end of visit, stands a bit slower, more antalgic gait, but steady. General: patient oriented x3, CN's II-XI intact bilaterally and deep tendon reflexes 2+ bilaterally Gait exam (Neuro): Normal gait present Motor exam (neuro): 5/5 motor strength present throughout Psych Appearance: grossly normal Mental Status: mental status grossly normal Speech and movement: Normal speech and movement present Affect: normal affect Attitude: cooperative Thought process: Normal thought process present Thought content: Normal thought content present Insight: Good insight present (Psych) Assessment & Plan Assessment & Plan (1) Sleep disorder: Code(s): G47.9 - Sleep disorder, unspecified (2) Muscle cramps: Comment: ? Familial paroxysmal kinesigenic dyskinesia- dystonic Code(s): R25.2 - Cramp and spasm (3) Fatigue: Code(s): R53.83 - Other fatigue (4) Snoring: Code(s): R06.83 - Snoring Plan Pt advised to undergo in-lab sleep study to assess for sleep apnea, PLMS. Trial Tegretol 100mg ER qhs, then may increase to 100mg ER bid- in hopes this helps cramps. Pt seen in collaboration w/ Dr Deana Mckeon. Orders: Orders RT PSG in-lab sleep study Today G47.9 - Sleep disorder, unspecified, R06.83 - Snoring, R25.2 - Cramp and spasm, R53.83 - Other fatigue Medications: New carbamazepine ER (Tegretol XR) 100 mg PO BID 30 days 60 tabs 3RF Coding Level of Care Code New Pt Level 4 (25734) Diagnoses Sleep disorder G47.9 Muscle cramps R25.2 Fatigue R53.83 Snoring R06.83
[2023-07-15 13:19] VITALS: BP 132/62; PULSE 96; RESP 16; O2SAT 98; BMI 27.4
== END 2023-07-15 15:04 | disposition home or self-care (01) ==
PROVIDERS: PCP Nurse Practitioner Adult Health; Visit Provider Nurse Practitioner Family
DX: G47.9 Sleep disorder, unspecified (principal); R25.2 Cramp and spasm; R53.83 Other fatigue; R06.83 Snoring
CPT/HCPCS: 99204

== ENCOUNTER → 2023-07-15 13:14 | Outpatient (BNVA) | payer MEDICARE, OTHER, SELFPAY | PROVIDERS: PCP Nurse Practitioner Adult Health; Visit Provider Nurse Practitioner Family | DX: G47.9 Sleep disorder, unspecified (principal); R25.2 Cramp and spasm; R53.83 Other fatigue; R06.83 Snoring | CPT/HCPCS: 99202 ==

== ENCOUNTER → 2023-08-08 20:30 | Outpatient (REF) | payer MEDICARE, OTHER, SELFPAY | LOC: HO.SL 20:30 | PROVIDERS: PCP Nurse Practitioner Adult Health; Visit Provider Nurse Practitioner Family | DX: G47.33 Obstructive sleep apnea (adult) (pediatric) (principal); R06.83 Snoring; G47.9 Sleep disorder, unspecified; R53.83 Other fatigue; R25.2 Cramp and spasm | CPT/HCPCS: 95810 ==

== ENCOUNTER → 2023-08-08 21:17 | Outpatient (BNV) | payer MEDICARE, OTHER, SELFPAY | PROVIDERS: PCP Nurse Practitioner Adult Health; Visit Provider Psychiatry & Neurology Neurology | DX: G47.33 Obstructive sleep apnea (adult) (pediatric) (principal) | CPT/HCPCS: 95810 ==

== ENCOUNTER 2023-08-09 10:46 | Outpatient (AMB) | payer MEDICARE, OTHER, SELFPAY ==
--- NOTE | 2023-08-09 10:54 | A.OFFVIS_ITS ---
Vital Signs 08/09/23 10:56 Height 5 ft 7 in Weight 174 lb 2.643 oz BMI 27.3 Blood Pressure Location Lt brachial Position Sitting Intake Visit Reasons: 4 mnth follow up Intake Note: Khadra presents in the office as a 4 month follow up. CC: She states that she is having all the same concerns. She has pressure and s harp pains in her ears that has been happening for a month now. Human Resources Receptionist Required: No Allergies gluten Allergy (Mild, Verified 08/09/23 10:56) Unknown Seasonal Allergies Allergy (Mild, Verified 08/09/23 10:56) Unknown HPI HPI 4 mnth follow up: Details: 67 yr old f w/ hx of appendectomy, , migraines, asthma, called for f/u RECAP: All her life she has felt she has had issues migraines since teenage years diagnosed with SIBO and EBV she gets urticarial rash with exercise she cant drink alcohol makes her go in a rash and throat constricts she denies nausea, no vomiting she did have 2 months of lower abdominal pain going into the back but it went away by itself she can have bowel urgency, remains gluten free, usu loose bowels she had colonoscopy aged 52 with no bx, EGD also done, no bx done no blood in stool stool can flush, sometimes looks greasy she has noted satiety she has no heartburn she has bloating with a lot of gas she has been dx with fibromyalgia she has body pain, sometimes feels hard to walk she has extreme muscle cramping she saw a neurologist and had EMG and normal never had muscle biopsy never been checked for stiff man syndrome she is on a lot of meds incl cromolyn and pepcid, quercetin and supplements feels not helping she has treatment for sibo dx with lyme disease a month ago EGD/[place]; duodenitis, adenoma neg for amyloid and IgG4 MRI spine: Multilevel degenerative changes of the cervical spine No high-grade spinal canal stenosis. Moderate right neural foraminal stenosis at C3-C4. INTERIM: stressed, son and have aortic aneurysm she might be seeing some more neurologists at [facility] she went to see sleep specialist here and being eval for sleep disorder--she was given trial of tegretol which helped a lot she has gas symptoms EXAM: GENERAL: The patient is well developed and nontoxic. VITAL SIGNS:see workflow HEENT: Nonicteric sclerae, PERRLA, EOMI. Oropharynx clear. Moist mucous membranes. Conjunctivae appear well perfused. No thyroid mass. CHEST: Chest wall is nontender. HEART: Regular rate and rhythm without murmurs. LUNGS: Clear to auscultation bilaterally. ABDOMEN: Soft, positive bowel sounds, nontender, no organomegaly.no flank tenderness SKIN: No rash, no excessive bruising, petechiae, or purpura. NEUROLOGIC: Cranial nerves II-XII intact without motor/sensory deficit. Psych: normal affect A/P: 1/ Numerous assortment of sx incl musc cramps, abn bowle habits, satiety, whole body pain, hard ot pinpoint a single dx at this time, ddx: referred from spine, due to folate def, taurine def--being treated for lyme testing Plan: 1/Await input from neurologist 2/ she will hold on musc bx for the moment 3/ can try VSL#3 meantime PFSH Medical History Fibromyalgia Asthma Migraine Mast cell disease Anemia Stiff-man syndrome Surgical History Hx of section Hx of appendectomy History of esophagogastroduodenoscopy (EGD) H/O colonoscopy Family History Mother HTN (hypertension) Father HTN (hypertension) Social History Household Members: Spouse Alcohol intake: current Alcohol intake frequency: holidays/special occasions only Alcohol type: wine Patient Tobacco Use Status: Never used Tobacco Current occupational status: retired Physical Exam Vital Signs: BMI result Body Mass Index 27.3 Assessment & Plan Assessment & Plan (1) Muscle cramps: Comment: ? Familial paroxysmal kinesigenic dyskinesia- dystonic Code(s): R25.2 - Cramp and spasm Category: Medical Plan: see above
[2023-08-09 10:56] VITALS: BMI 27.3
== END 2023-08-09 11:32 | disposition home or self-care (01) ==
PROVIDERS: PCP Nurse Practitioner Adult Health; Visit Provider Internal Medicine Gastroenterology
DX: R25.2 Cramp and spasm (principal)
CPT/HCPCS: 99213

== ENCOUNTER → 2023-08-09 10:46 | Outpatient (BNVA) | payer MEDICARE, OTHER, SELFPAY | PROVIDERS: PCP Nurse Practitioner Adult Health; Visit Provider Internal Medicine Gastroenterology | DX: R25.2 Cramp and spasm (principal) | CPT/HCPCS: 99212 ==